=== PATIENT | male | born 1995 | race Caucasian/White ===

== ENCOUNTER 2018-06-17 23:53 | Emergency (ER) | payer OTHER ==
--- NOTE | 2018-06-18 00:09 | PDOC ---
History of Present Illness - General Stated Complaint: INSULIN NEEDLE Time Seen by Provider: 06/18/18 00:08 History Source: Patient Exam Limitations: No Limitations - History of Present Illness Initial Comments: 06/18/18 00:21 Best Contact: PCP:Dr Ha/Dr. Domi childress/Emdocrinologist Pmhx:IDDm since age 9, Scoliosis Pshx:Cataract Allergies:NKDA FH:0 Social Hx: Cigarettes/ 0 Alcohol/ 0 Drugs/0 22-year-old male presents to the ER with no medical complaints. Patient states he ran out of insulin needles and is unable to contact his physician for a prescription refill. Patient adamantly denies fever, chills, nausea/vomiting, headache, dizziness, lightheadedness, diaphoresis, chest pain, shortness of breath, abdominal pains, flank pains, urinary symptoms. Patient states his last fingerstick was 98 which was 20 minutes ago when he realized that was his last insulin needle. Patient adamantly refuses any treatment Review of Systems - Review of Systems Able to Perform ROS?: Yes Comments:: 06/18/18 00:21 CONSTITUTIONAL: Absent: fever, chills, diaphoresis, generalized weakness, malaise, loss of appetite HEENT: Absent: rhinorrhea, nasal congestion, throat pain, throat swelling, difficulty swallowing, mouth swelling, ear pain, eye pain, visual Changes CARDIOVASCULAR: Absent: chest pain, loss of consciousness, palpitations, irregular heart rate, peripheral edema RESPIRATORY: Absent: cough, shortness of breath, dyspnea with exertion, orthopnea, wheezing, stridor, hemoptysis GASTROINTESTINAL: Absent: abdominal pain, abdominal distension, nausea, vomiting, diarrhea, constipation, melena, hematochezia GENITOURINARY: Absent: dysuria, frequency, urgency, hesitancy, hematuria, flank pain, genital pain MUSCULOSKELETAL: Absent: myalgia, arthralgia, joint swelling SKIN: Absent: rash, itching, pallor HEMATOLOGIC/IMMUNOLOGIC: Absent: easy bleeding, easy bruising, lymphadenopathy, frequent infections ENDOCRINE: Absent: unexplained weight gain, unexplained weight loss, heat intolerance, cold intolerance NEUROLOGIC: Absent: headache, focal weakness or paresthesias, dizziness, unsteady gait, seizure, mental status changes, bladder or bowel incontinence PSYCHIATRIC: Absent: anxiety, depression, suicidal or homicidal ideation, hallucinations. Is the patient limited Jordanian proficient: No *Physical Exam - Physical Exam Comments: 06/18/18 00:21 GENERAL: Well developed, well nourished. Awake and alert. No acute distress. HEENT: Normocephalic, atraumatic. PERRLA, EOMI. No conjunctival pallor. Sclera are non- icteric. Moist mucous membranes. Oropharynx is clear. NECK: Supple. Full ROM. No JVD. Carotid pulses 2+ and symmetric, without bruits. No thyromegaly. No lymphadenopathy. CARDIOVASCULAR: Regular rate and rhythm. No murmurs, rubs, or gallops. Distal pulses are 2+ and symmetric. PULMONARY: No evidence of respiratory distress. Lungs clear to auscultation bilaterally. No wheezing, rales or rhonchi. SKIN: Warm and dry. Normal capillary refill. No rashes. No jaundice. NEUROLOGICAL: Alert, awake, appropriate. PSYCHIATRIC: Cooperative. Good eye contact. Appropriate mood and affect. 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
[2018-06-18 00:29] VITALS: BP 121/60; PULSE 97; TEMP 98.4; BMI 24.3
== END 2018-06-18 00:27 | disposition home or self-care (01) ==
LOC: JER 23:53
DX: Z76.0 Encounter for issue of repeat prescription (principal); E10.9 Type 1 diabetes mellitus without complications; Z79.4 Long term (current) use of insulin
CPT/HCPCS: 99281-25